=== PATIENT | female | born 1945 | race Two or more races ===

== ENCOUNTER 2025-05-28 13:24 | Emergency (ER) | payer OTHER ==
[~2025-05-28] VITALS: Ht 165.1 cm; Wt 59.1 kg
[2025-05-28 13:27] VITALS: BP 136/86; PULSE 78; RESP 16; TEMP 98; O2SAT 100
[2025-05-28] MEDS ORDERED: EMPA10TA3 PO (13:32)
[2025-05-28] MEDS ORDERED: INSLAN SQ (13:32)
[2025-05-28] MEDS ORDERED: SULF15DR26 OS (14:25)
[2025-05-28] MEDS ORDERED: CEPH-558 PO (14:25)
[2025-05-28] MEDS ORDERED: ACET-66 PO (14:28)
[2025-05-28] MEDS ORDERED: PRAV20TA59 PO (15:09)
[2025-05-28] MEDS ORDERED: LEVO75 PO (15:09)
[2025-05-28] MEDS ORDERED: KETO15CR2 TP (15:09)
[2025-05-28] MEDS ORDERED: LATA2.5D7 OU (15:09)
[2025-05-28] MEDS ORDERED: URSO250T21 PO (15:09)
[2025-05-28] MEDS ORDERED: FERR-72 PO (15:09)
[2025-05-28] MEDS ORDERED: NETA2.5D OD (15:09)
[2025-05-28] MEDS ORDERED: METF-445 PO (15:09)
[2025-05-28] MEDS ORDERED: FLUO15CR TP (15:09)
== END 2025-05-28 15:08 | disposition home or self-care (01) ==
LOC: EMS 13:24
DX: H10.9 Unspecified conjunctivitis (principal); H40.9 Unspecified glaucoma; E11.9 Type 2 diabetes mellitus without complications; I10 Essential (primary) hypertension
CPT/HCPCS: 82962; 99283